=== PATIENT | female | born 1995 | race Two or more races ===

== ENCOUNTER 2019-01-19 16:41 | Emergency (ER) | payer SELFPAY ==
[2019-01-19] MEDS ORDERED: NORMAL SALINE 1000 ML 1,000 ML IV ONE (17:04)
[2019-01-19] MEDS ORDERED: ONDANSETRON HCL INJ/PF 4 MG/2 ML SDV IV ONE (17:04)
--- NOTE | 2019-01-19 17:06 | ER Document Report ---
ED Medical Screen (RME) - General Chief Complaint: Abdominal Pain Stated Complaint: ABDOMINAL PAIN TRAVEL OUTSIDE OF THE [place] IN LAST 30 DAYS: No - HPI Notes: 01/19/19 17:05 Patient is a 23-year-old female G1, P2 approximately 9 weeks who presents complaining of generalized abdominal discomfort with nausea, vomiting, decreased p.o. intake. She has had some back soreness. No vaginal discharge, odor, or bleeding. She has noticed a foul odor with urination to as well. Denies HURT, fever, neck pain, URI, CP, SOB, or rash. I have treated and performed a rapid initial assessment of this patient. A comprehensive ED assessment and evaluation of the patient, analysis of test results and completion of medical decision making process will be conducted by additional ED providers. PHYSICAL EXAMINATION: GENERAL: Well-appearing, well-nourished and in no acute distress. A&Ox4. Answers questions appropriately. LUNGS: Breath sounds clear to auscultation bilaterally and equal. No wheezes rales or rhonchi. HEART: Regular rate and rhythm without murmurs, rubs, gallops. ABDOMEN: Soft, nondistended abdomen. No guarding, no rebound. Normal bowel sounds present. No CVA tenderness bilaterally. + mild generalized tenderness (cannot elicit thorough abd exam w/o bed, however). - Related Data Allergies/Adverse Reactions: No Known Allergies Allergy (Verified 01/19/19 16:44) Physical Exam - Vital signs Vitals: Temp Pulse Resp BP Pulse Ox 98.4 F 106 H 18 104/73 98 01/19/19 16:50 01/19/19 16:50 01/19/19 16:50 01/19/19 16:50 01/19/19 16:50 Course - Vital Signs Vital signs: Temp Pulse Resp BP Pulse Ox 98.4 F 106 H 18 104/73 98 01/19/19 16:50 01/19/19 16:50 01/19/19 16:50 01/19/19 16:50 01/19/19 16:50
[2019-01-19] MEDS ORDERED: ONDANSETRON HCL INJ/PF 4 MG/2 ML SDV ONE (17:29)
[2019-01-19 18:20] LABS: ABSOLUTE BASOPHILS # (AUTO) 0.1 10^3/uL (0.0-0.2); ABSOLUTE EOSINOPHILS # (AUTO) 0.1 10^3/uL (0.0-0.6); ABSOLUTE LYMPHOCYTES (AUTO) 1.6 10^3/uL (0.5-4.7); ABSOLUTE MONOCYTES (AUTO) 0.7 10^3/uL (0.1-1.4); ABSOLUTE NEUT (AUTO) 7.5 10^3/uL (1.7-8.2); BASOPHILS % (AUTO) 0.5 % (0-2); EOSINOPHILS % (AUTO) 0.6 % (0-6); HEMATOCRIT 42.1 % (36.0-47.0); HEMOGLOBIN 13.7 g/dL (12.0-15.5); LYMPHOCYTES % (AUTO) 16.5 % (13-45); MEAN CORPUSCULAR HEMOGLOBIN 27.2 pg (27.0-33.4); MEAN CORPUSCULAR HGB CONC 32.6 g/dL (32.0-36.0); MEAN CORPUSCULAR VOLUME 83 fl (80-97); MONOCYTES % (AUTO) 7.2 % (3-13); PLATELET COUNT 348 10^3/uL (150-450); RED BLOOD COUNT 5.06 10^6/uL (3.72-5.28); RED CELL DISTRIBUTION WIDTH 15.5 % (11.5-14.0); SEGMENTED NEUTROPHILS % (AUTO) 75.2 % (42-78); TOTAL CELLS COUNTED % (AUTO) 100 %; WHITE BLOOD COUNT 9.9 10^3/uL (4.0-10.5)
[2019-01-19 18:39] LABS: ALBUMIN 4.5 g/dL (3.5-5.0); ALKALINE PHOSPHATASE 65 U/L (38-126); ANION GAP 12 (5-19); ASPARTATE AMINO TRANSFERASE 34 U/L (14-36); BILIRUBIN,DIRECT 0.4 mg/dL (0.0-0.4); BILIRUBIN,TOTAL 0.7 mg/dL (0.2-1.3); BLOOD UREA NITROGEN 5 mg/dL (7-20); CALCIUM 9.7 mg/dL (8.4-10.2); CARBON DIOXIDE 24 mmol/L (22-30); CHLORIDE 99 mmol/L (98-107); GLUCOSE 80 mg/dL (75-110); POTASSIUM 4.6 mmol/L (3.6-5.0); TOTAL PROTEIN 7.8 g/dL (6.3-8.2)
--- NOTE | 2019-01-19 18:41 | RADIOLOGY REPORT (SQ) ---
EXAM DESCRIPTION: U/S OB TRANSVAG W/DOPPLER COMPLETED DATE/TIME: 01/19/2019 6:22 pm REASON FOR STUDY: abd pain/ COMPARISON: None. TECHNIQUE: Endovaginal static and realtime grayscale images acquired of the pelvis. Additional selec adrianna spectral and color Doppler images recorded. All images stored on PACs. bHCG: None available CLINICAL DATES: Last menses 11/08/2018, estimated due date 08/15/2019 LIMITATIONS: None. FINDINGS: FETUS: Single Living intrauterine . ULTRASOUND EGA: 10 weeks 0 days ULTRASOUND LUIS: 08/17/2019 EFW: Not applicable less than 20 weeks. CRL: 3.1 cm FHR: 163 beats per minute. SURVEY: Too early to assess AMNIOTIC FLUID: Adequate amount. PLACENTA: Not yet developed due to early gestation. SUBCHORIONIC BLEED: No SIZE OF BLEED: Not applicable. UTERUS: No masses. No anomalies. Uterus is 11 x 8 x 8 cm in size CERVICAL LENGTH: Not well seen RIGHT ADNEXA: Normal ovary with normal vascular flow. Right ovary is 3.5 x 3.3 x 1.9 cm in size. No adnexal free fluid. No adnexal masses. LEFT ADNEXA: Ovary not identified due to poor acoustical window. No adnexal free fluid. No adnexal masses. FREE FLUID: None. OTHER: No other significant finding. IMPRESSION: LIVING INTRAUTERINE . EGA 10 weeks 0 days No free pelvic fluid. Left ovary not visualized. Trimester of : First trimester - 0 to 13 weeks. TECHNICAL DOCUMENTATION: JOB ID: [id number] [employer]- All Rights Reserved Reading location - IP/workstation name: [id number]
--- NOTE | 2019-01-19 19:44 | ER Document Report ---
ED General - General Chief Complaint: Abdominal Pain Stated Complaint: ABDOMINAL PAIN Time Seen by Provider: 01/19/19 18:01 Primary Care Provider: [facility] [Provider Group] - Follow up in 1 week Notes: Patient is a G1 P 0 23-year-old female who presents to the emergency department with a chief complaint of abdominal pain. Patient is primarily Greenlandic- speaking. I offered an instrument assembler, but she refused. Her boyfriend (father of the baby) states that he is fluent in Maori and [place]ic and would like to translate. Her pain started today. Her pain is in her lower abdomen and her back. Has had some associated nausea and vomiting. Her oral intake has been poor since yesterday. Patient admits to having some yellow vaginal discharge. She denies any vaginal bleeding, fever, or dysuria. She has a past medical history of thyroid cancer which was removed 14 years ago, but apparently is still active. She was supposed to have chemotherapy, but found out she was . Her primary care provider is in [place]. TRAVEL OUTSIDE OF THE [place] IN LAST 30 DAYS: No - Related Data Allergies/Adverse Reactions: No Known Allergies Allergy (Verified 01/19/19 16:44) Past Medical History - Social History Smoking Status: Never Smoker Chew tobacco use (# tins/day): No Frequency of alcohol use: None Family History: Reviewed & Not Pertinent Patient has suicidal ideation: No Patient has homicidal ideation: No Renal/ Medical History: Denies: Hx Peritoneal Dialysis Past Surgical History: Reports: Hx Thyroid Surgery - Age of 13 Review of Systems - Review of Systems Notes: REVIEW OF SYSTEMS: CONSTITUTIONAL : Denies recent illness. Denies recent unintentional weight loss. Denies fever, chills, or sweats. EENT: Denies eye, ear, throat, or mouth pain, discharge, or symptoms. Denies nasal or sinus congestion. CARDIOVASCULAR: Denies chest pain. RESPIRATORY: Denies shortness of breath, cough, congestion, difficulty breathing, or wheezing. GASTROINTESTINAL: See HPI GENITOURINARY: Denies difficulty urinating, burning, blood in urine, urgency or frequency. FEMALE GENITOURINARY: See HPI MUSCULOSKELETAL: Denies neck and back pain. Denies joint pain or swelling. SKIN: Denies rash, itchiness, or lesions HEMATOLOGIC : Denies easy bruising or bleeding. LYMPHATIC: Denies swollen, painful, enlarged glands. NEUROLOGICAL: Denies no numbness or tingling denies weakness. Denies headache. Denies altered mental status. Denies alteration in speech. PSYCHIATRIC: Denies stress, anxiety, alteration in sleep patterns, or depression. All other systems reviewed and negative. Physical Exam - Vital signs Vitals: Temp Pulse Resp BP Pulse Ox 98.4 F 106 H 18 104/73 98 01/19/19 16:50 01/19/19 16:50 01/19/19 16:50 01/19/19 16:50 01/19/19 16:50 - Notes Notes: PHYSICAL EXAMINATION: GENERAL: Appears well, healthy, well-nourished, no acute distress. HEAD: Normocephalic, atraumatic. EYES: PERRL, conjunctiva normal, all extraocular movements intact, sclera nonicteric ENT: Moist mucous membranes. NECK: Supple, no noticeable swelling, redness, rash. Normal range of motion. LUNGS: Equal breath sounds bilaterally and clear to auscultation. No wheezes rales or rhonchi. CARDIOVASCULAR: S1-S2, regular rate, regular rhythm. Radial pulses 2+, normal. ABDOMEN: Normoactive bowel sounds. Soft, mildly tender mid lower abdomen, no guarding, no rebound tenderness, and no masses palpated. EXTREMITIES: Normal strength and range of motion, no pitting or edema. No cyanosis. NEUROLOGICAL: Moves all extremities upon command. Strength 5/5 in all extremities. PSYCH: Normal mood, normal affect. SKIN: Warm, dry. No rash, lesions, ulcerations noted. Normal skin turgor. INPUT OUTPUT CLERK: Pale yellow discharge noted; no cervical motion tenderness. Course - Re-evaluation Re-evalutation: 01/19/19 19:50 Transvaginal ultrasound ordered in triage shows that the patient is transvaginal ultrasound ordered in triage shows that the patient has a 10-week living intrauterine . Her hematology is unremarkable. Chemistries are also unremarkable. Her beta hCG is 94,106, consistent with her . Her urinalysis shows that she is mildly dehydrated. After speaking with the patient, a pelvic exam will be done due to the patient having vaginal discharge. 01/19/19 20:05 JESSICA Morillo was at bedside for station supervisor of pelvic exam. The patient's boyfriend was also there for translation. No cervical motion tenderness noted. There is some yellow discharge on physical exam. Awaiting wet mount results. 01/19/19 21:45 Wet mount results show that patient has 3+ epithelial cells and 3+ bacteria. No yeast noted there is also 1+ WBCs. Gonorrhea and Chlamydia are both negative. At this time the patient will be started on transvaginal metronidazole. Discharge instructions were given to the patient via her boyfriend. Patient verbalized understanding of discharge instructions. She will follow-up with [facility]. Patient is unsure as when she will return to [place]. I told her that if she is going to stay in the area, I would follow- up with [facility]. She is in agreement with this plan. Follow-up precautions were given. Verbal discharge instructions were given to the patient. They verbalized understanding. They are stable for discharge. - Vital Signs Vital signs: Temp Pulse Resp BP Pulse Ox 98.2 F 102 H 16 108/59 L 98 01/19/19 22:39 01/19/19 22:39 01/19/19 22:39 01/19/19 22:39 01/19/19 22:39 - Laboratory Result Diagrams: 01/19/19 17:32 01/19/19 17:32 Laboratory results interpreted by me: 01/19/19 01/19/19 01/19/19 17:32 17:32 20:50 RDW 15.5 H Sodium 135.0 L BUN 5 L Creatinine 0.37 L Beta HCG, Quant 81155.00 H Urine Ketones 80 H Urine Nitrite POSITIVE H Urine Urobilinogen 4.0 H Discharge - Discharge Clinical Impression: Bacterial vaginosis Qualifiers: Weeks of gestation: 10 weeks Qualified Code(s): Z3A.10 - 10 weeks gestation of Condition: Stable Disposition: HOME, SELF-CARE Additional Instructions: You were seen today in the emergency department for abdominal cramping during . You have bacterial vaginosis. You are being treated with antibiotics. Take as prescribed. If the results are positive, you will be called. Please follow-up with an [facility]. You are being sent home with nausea medication. You can take this medication tonight (1 tablet every 4-6 hours as needed) until you are able to buy vitamin B6 [id number]. Prescriptions: Metronidazole [Metrogel 0.75% Vaginal Gel] 1 applic VG QHS 5 Days #1 tube Referrals: [facility] [Provider Group] - Follow up in 1 week
[2019-01-19 20:35] LABS: BACTERIA (WET MOUNT) 3+ BACTERIA SEEN; EPITHELIALS (WET MOUNT) 3+ EPITHELIALS SEEN; RBCS (WET MOUNT) NO RBCS SEEN; T.VAGINALIS (WET MOUNT) NO TRICHOMONAS SEEN; WBCS (WET MOUNT) 1+ WBCS SEEN; YEAST (WET MOUNT) NO YEAST SEEN
[2019-01-19] MEDS ORDERED: AZITHROMYCIN 250 MG TABLET PO ONE (20:47)
[2019-01-19] MEDS ORDERED: LIDOCAINE 1% INJ-PF (10 MG/ML) 30 ML SDV INJ ONE (20:47)
[2019-01-19] MEDS ORDERED: METRONIDAZOLE 500 MG TABLET PO ONE (20:47)
[2019-01-19] MEDS ORDERED: CEFTRIAXONE INJ 250 MG VIAL IM ONE (20:47)
[2019-01-19] MEDS ORDERED: AZITHROMYCIN 250 MG TABLET ONE (21:16)
[2019-01-19] MEDS ORDERED: METRONIDAZOLE 500 MG TABLET ONE (21:16)
[2019-01-19] MEDS ORDERED: LIDOCAINE 1% INJ-PF (10 MG/ML) 30 ML SDV ONE (21:17)
[2019-01-19] MEDS ORDERED: CEFTRIAXONE INJ 250 MG VIAL ONE (21:17)
[2019-01-19 22:01] LABS: APPEARANCE,URINE CLEAR; BILIRUBIN,URINE NEGATIVE (NEGATIVE); COLOR,URINE YELLOW; GLUCOSE, URINE NEGATIVE (NEGATIVE); KETONES,URINE 80 mg/dL (NEGATIVE); LEUKOCYTE ESTERASE,URINE NEGATIVE (NEGATIVE); NITRITE,URINE POSITIVE (NEGATIVE); PROTEIN,URINE NEGATIVE (NEGATIVE); URINE SPECIFIC GRAVITY 1.019
[2019-01-19 22:02] LABS: CHLAM PCR NOT DETECTED (NOT DETECT)
[2019-01-19] MEDS ORDERED: ONDANSETRON ODT 4 MG TAB (6 TAB/ER DISP) PO PRN (22:35)
[2019-01-19 22:39] VITALS: BP 108/59
== END 2019-01-19 22:45 | disposition home or self-care (01) ==
LOC: ER 16:41
DX: O23.591 Infection of other part of genital tract in pregnancy, first trimester (principal); B96.89 Other specified bacterial agents as the cause of diseases classified elsewhere; O21.9 Vomiting of pregnancy, unspecified; O26.891 Other specified pregnancy related conditions, first trimester; R10.30 Lower abdominal pain, unspecified; O99.89 Other specified diseases and conditions complicating pregnancy, childbirth and the puerperium; M54.9 Dorsalgia, unspecified; Z3A.10 10 weeks gestation of pregnancy
CPT/HCPCS: 99284; 96361; 96374; 36415; 87210; 84702; 83690; 85025; 80053; 81001; 87491; 87591; 76817; 93976; J2405; J7030

== ENCOUNTER 2019-01-27 17:15 | Emergency (ER) | payer SELFPAY ==
[2019-01-27] MEDS ORDERED: PROMETHAZINE HCL 25 MG TABLET PO ONE (17:56)
[2019-01-27] MEDS ORDERED: NORMAL SALINE 1000 ML 1,000 ML IV ONE ×2 (17:56→20:58)
--- NOTE | 2019-01-27 17:58 | ER Document Report ---
ED Medical Screen (RME) - General Chief Complaint: Abdominal Pain Stated Complaint: STOMACH PAIN Time Seen by Provider: 01/27/19 17:52 Notes: Patient is presently 10 weeks G1, P0. Patient complains of epigastric pain that radiates to left upper quadrant and left lateral side. Patient reports nausea and vomiting. Patient had pain symptoms for some time but they worsened today. Patient was seen here last week for similar complaints. I have greeted and performed a rapid initial assessment of this patient. A comprehensive ED assessment and evaluation of the patient, analysis of test results and completion of the medical decision making process will be conducted by additional ED providers. TRAVEL OUTSIDE OF THE [place] IN LAST 30 DAYS: No - Related Data Allergies/Adverse Reactions: No Known Allergies Allergy (Verified 01/27/19 17:53) Past Medical History - Social History Chew tobacco use (# tins/day): No Frequency of alcohol use: None Drug Abuse: None Renal/ Medical History: Denies: Hx Peritoneal Dialysis Past Surgical History: Reports: Hx Thyroid Surgery - Age of 13 Physical Exam - Vital signs Vitals: Temp Pulse Resp BP Pulse Ox 98.7 F 106 H 18 104/68 97 01/27/19 17:22 01/27/19 17:22 01/27/19 17:22 01/27/19 17:22 01/27/19 17:22 - General Notes: Epigastric, left upper quadrant, left lateral side pain Course - Vital Signs Vital signs: Temp Pulse Resp BP Pulse Ox 98.7 F 106 H 18 104/68 97 01/27/19 17:22 01/27/19 17:22 01/27/19 17:22 01/27/19 17:22 01/27/19 17:22
[2019-01-27 18:37] LABS: ABSOLUTE EOSINOPHILS # (AUTO) 0.1 10^3/uL (0.0-0.6); ABSOLUTE LYMPHOCYTES (AUTO) 1.8 10^3/uL (0.5-4.7); ABSOLUTE MONOCYTES (AUTO) 0.7 10^3/uL (0.1-1.4); ABSOLUTE NEUT (AUTO) 8.1 10^3/uL (1.7-8.2); BASOPHILS % (AUTO) 0.4 % (0-2); EOSINOPHILS % (AUTO) 0.5 % (0-6); HEMATOCRIT 40.8 % (36.0-47.0); HEMOGLOBIN 13.6 g/dL (12.0-15.5); LYMPHOCYTES % (AUTO) 16.4 % (13-45); MEAN CORPUSCULAR HEMOGLOBIN 27.4 pg (27.0-33.4); MEAN CORPUSCULAR HGB CONC 33.2 g/dL (32.0-36.0); MEAN CORPUSCULAR VOLUME 83 fl (80-97); MONOCYTES % (AUTO) 6.6 % (3-13); PLATELET COUNT 321 10^3/uL (150-450); RED BLOOD COUNT 4.95 10^6/uL (3.72-5.28); RED CELL DISTRIBUTION WIDTH 15.7 % (11.5-14.0); SEGMENTED NEUTROPHILS % (AUTO) 76.1 % (42-78); TOTAL CELLS COUNTED % (AUTO) 100 %; WHITE BLOOD COUNT 10.7 10^3/uL (4.0-10.5)
[2019-01-27 18:57] LABS: ALBUMIN 4.2 g/dL (3.5-5.0); ALKALINE PHOSPHATASE 77 U/L (38-126); ANION GAP 13 (5-19); ASPARTATE AMINO TRANSFERASE 23 U/L (14-36); BILIRUBIN,DIRECT 0.3 mg/dL (0.0-0.4); BILIRUBIN,TOTAL 0.5 mg/dL (0.2-1.3); BLOOD UREA NITROGEN 3 mg/dL (7-20); CALCIUM 9.7 mg/dL (8.4-10.2); CARBON DIOXIDE 23 mmol/L (22-30); CHLORIDE 100 mmol/L (98-107); GLUCOSE 92 mg/dL (75-110); POTASSIUM 3.9 mmol/L (3.6-5.0); TOTAL PROTEIN 7.5 g/dL (6.3-8.2)
[2019-01-27 20:21] LABS: APPEARANCE,URINE CLOUDY; BILIRUBIN,URINE NEGATIVE (NEGATIVE); GLUCOSE, URINE NEGATIVE (NEGATIVE); KETONES,URINE 80 mg/dL (NEGATIVE); LEUKOCYTE ESTERASE,URINE MODERATE (NEGATIVE); NITRITE,URINE NEGATIVE (NEGATIVE); PROTEIN,URINE 30 mg/dL (NEGATIVE); URINE SPECIFIC GRAVITY 1.023
--- NOTE | 2019-01-27 20:24 | RADIOLOGY REPORT (SQ) ---
EXAM DESCRIPTION: US LESS THAN 14 WEEKS COMPLETED DATE/TME: 01/27/2019 17:57 CLINICAL HISTORY: 23 years, Female, epig, L lat side pain COMPARISON: None. TECHNIQUE: Axial 2-D grayscale images of the pelvis were performed. Doppler was utilized. LIMITATIONS: None. FINDINGS: Uterus measures 11.9 x 9.3 x 7.6 cm in size. A single intrauterine gestational sac is identified with measurements as follows: Mclean-rump length: 4.63 cm heart rate is 163 bpm Yolk sac was not visualized. Estimated gestational age is 11 weeks and three days for an estimated date of delivery of 08/15/2019 Cervix is closed, measuring 2.8 cm in length. Right ovary measures 3.3 x 2.6 x 2.9 cm in size. It appears normal in echogenicity. The left ovary was not visualized. IMPRESSION: Single viable intrauterine , as above described. No acute findings. Nonvisualization of the left ovary. copyright 2010 [employer]- All Rights Reserved
[2019-01-27] MEDS ORDERED: MAG HYDROX/AL HYDROX/SIMETH SUSP 30 ML UDCUP PO ONE (20:26)
[2019-01-27] MEDS ORDERED: METOCLOPRAMIDE HCL ORAL SOLN 10 MG/10 ML UDCUP PO ONE (20:26)
[2019-01-27] MEDS ORDERED: LIDOCAINE 2% VISCOUS SOLN 20 ML UDCUP PO ONE (20:26)
[2019-01-27 20:30] LABS: COLOR,URINE YELLOW
--- NOTE | 2019-01-27 20:30 | ER Document Report ---
ED GI/ - General Chief Complaint: Abdominal Pain Stated Complaint: STOMACH PAIN Time Seen by Provider: 01/27/19 17:52 Primary Care Provider: [facility] [Provider Group] - Follow up as needed Mode of Arrival: Ambulatory Information source: Patient Notes: 23-year-old female presents to ED for epigastric pain nausea and vomiting since she was 5 weeks she is now 10 weeks . She states she has been having worsening pain in her epigastric area and throat from the throwing up. States she was seen here last week for similar symptoms. She is alert oriented respirations regular and unlabored speaking in full sentences. She does speak S panish and she preferred for her to translate according to the and she states she does understand me but she cannot talk to me. TRAVEL OUTSIDE OF THE [place] IN LAST 30 DAYS: No - HPI Patient complains to provider of: Abdominal pain - Epigastric, , Vomiting Onset: Other - 5 weeks Timing/Duration: Intermittent Quality of pain: Burning Severity at maximum: Severe Severity in ED: Moderate Pain Level: 3 Context: Location: Epigastric Vaginal bleeding (Compared to normal period): None Menstrual period history: : 1 Para: 0 Exacerbated by: Food, Other - vomiting Relieved by: Denies Similar symptoms previously: Yes Recently seen / treated by doctor: Yes - Related Data Allergies/Adverse Reactions: No Known Allergies Allergy (Verified 01/27/19 17:53) Past Medical History - General Information source: Patient, Relative - - Social History Smoking Status: Never Smoker Chew tobacco use (# tins/day): No Frequency of alcohol use: None Drug Abuse: None Lives with: Family Family History: Reviewed & Not Pertinent Patient has suicidal ideation: No Patient has homicidal ideation: No - Past Medical History Cardiac Medical History: Reports: None Pulmonary Medical History: Reports: None EENT Medical History: Reports: None Neurological Medical History: Reports: None Endocrine Medical History: Reports: Other - thyroidectomy Renal/ Medical History: Reports: None Malignancy Medical History: Reports: Other - thyroid GI Medical History: Reports: None Musculoskeletal Medical History: Reports None Skin Medical History: Reports None Psychiatric Medical History: Reports: None Traumatic Medical History: Reports: None Past Surgical History: Reports: Hx Thyroid Surgery - Age of 13 Review of Systems - Review of Systems Constitutional: No symptoms reported EENT: No symptoms reported Cardiovascular: No symptoms reported Respiratory: No symptoms reported Gastrointestinal: Abdominal pain - Epigastric Genitourinary: No symptoms reported Female Genitourinary: Musculoskeletal: No symptoms reported Skin: No symptoms reported Hematologic/Lymphatic: No symptoms reported Neurological/Psychological: No symptoms reported -: Yes All other systems reviewed and negative Physical Exam - Vital signs Vitals: Temp Pulse Resp BP Pulse Ox 98.7 F 106 H 18 104/68 97 01/27/19 17:22 01/27/19 17:22 01/27/19 17:22 01/27/19 17:22 01/27/19 17:22 Interpretation: Normal - General General appearance: Appears well, Alert - HEENT Head: Normocephalic, Atraumatic Eyes: Normal Pupils: PERRL - Respiratory Respiratory status: No respiratory distress Chest status: Nontender Breath sounds: Normal Chest palpation: Normal - Cardiovascular Rhythm: Regular Heart sounds: Normal auscultation Murmur: No - Abdominal Inspection: Normal Distension: No distension Bowel sounds: Normal Tenderness: Tender - Epigastric Organomegaly: No organomegaly - Back Back: Normal, Nontender - Extremities General upper extremity: Normal inspection, Nontender, Normal color, Normal ROM, Normal temperature General lower extremity: Normal inspection, Nontender, Normal color, Normal ROM, Normal temperature, Normal weight bearing. No: Cynthia's sign - Neurological Neuro grossly intact: Yes Cognition: Normal Orientation: AAOx4 Nordman Coma Scale Eye Opening: Spontaneous Nordman Coma Scale Verbal: Oriented Nordman Coma Scale Motor: Obeys Commands Nordman Coma Scale Total: 15 Speech: Normal Motor strength normal: LUE, RUE, LLE, RLE Sensory: Normal - Psychological Associated symptoms: Normal affect, Normal mood - Skin Skin Temperature: Warm Skin Moisture: Dry Skin Color: Normal Course - Re-evaluation Re-evalutation: 01/28/19 02:11 Patient was treated with Phenergan by the provider in triage. Patient states she still would have an pain in her throat and epigastric gas pains. She was then treated with a GI cocktail in the emergency room as well as IV fluids. She states the GI cocktail helped her a lot. When her urine was returned she does have a UTI. Patient was given more fluids due to her dehydration during and a gram of Rocephin in the emergency room. And she was discharged home with a prescription for cefdinir and instructed to follow-up with her primary care and [employer]. Patient was discharged home. Patient was able to understand my instructions but she is not able to speak [place] well enough but her did translate per her request. - Vital Signs Vital signs: Temp Pulse Resp BP Pulse Ox 98.6 F 105 H 18 112/68 98 01/27/19 22:27 01/27/19 22:27 01/27/19 22:27 01/27/19 22:27 01/27/19 22:27 - Laboratory Result Diagrams: 01/27/19 18:18 01/27/19 18:18 Laboratory results interpreted by me: 01/27/19 01/27/19 01/27/19 18:18 18:18 19:56 WBC 10.7 H RDW 15.7 H Sodium 135.9 L BUN 3 L Creatinine 0.34 L Urine Protein 30 H Urine Ketones 80 H Urine Urobilinogen 2.0 H Ur Leukocyte Esterase MODERATE H Urine Ascorbic Acid 40 H - Diagnostic Test Radiology reviewed: Image reviewed, Reports reviewed Discharge - Discharge Clinical Impression: UTI (urinary tract infection) in in first trimester, Nausea and vomiting during , Epigastric abdominal pain during Condition: Stable Disposition: HOME, SELF-CARE Additional Instructions: Hyperemesis Gravidarum Hyperemesis gravidarum is the medical term for severe vomiting during . We don't know exactly why it occurs, but it's a common problem. Dehydration can occur. This reduces blood flow to the placenta, decreasing the baby's nourishment. The baby will also become dehydrated. There can be harmful changes in blood sodium, potassium, or acid balance. Our goal is to correct, and prevent, dehydration. For severe cases, we give IV fluids. Antinausea medication will be prescribed. (Don't be concerned about " defects" -- the risk to you and your baby from the hyperemesis is the biggest problem. The antinausea medication is very safe at this stage of .) Call the doctor if you have vaginal bleeding, abdominal pain, severe li ghtheadedness or weakness, or other alarming symptoms. URINARY TRACT INFECTION: Your evaluation indicates that you have a urinary tract infection. This is due to germs growing in the bladder. This is a common problem. This infection usually responds quickly to antibiotics. Your antibiotic should be taken exactly as prescribed. Drink plenty of fluids -- three to four quarts a day. Occasionally, a bladder anesthetic will be prescribed to help stop the feeling of urgency until the antibiotic has a chance to clear the infection. This may cause your urine to be dark orange. Certain urine infections require a culture. If the doctor obtained a culture, the results will be back in two days. You should call to see if a change in treatment is needed. A repeat urinalysis after you finish treatment is often recommended. The physician will let you know if further testing is required. Call the doctor if you develop fever, chills, flank pain, inability to urinate, or blood in the urine. INTRAVENOUS (I V) FLUIDS: As part of your care today, you received intravenous (IV) fluids. IV fluids are administered to patients who are dehydrated or to those who have certain chemical (electrolyte) abnormalities that need correcting. ANTINAUSEA MEDICATION: You have been given a medication to suppress nausea and vomiting. This type of medication can be given as a shot, pill, or suppository. It will usually last for many hours. Pills and shots usually last six to eight hours. For the typical illness, only one or two doses of the medication may be necessary. Mild lightheadedness may occur. This type of medicine can cause drowsiness. Do not drive or operate dangerous machinery while under its influence. Do not mix with alcohol. See your doctor at once if you have muscle spasms or tightness, or uncontrollable motions (particularly of the neck, mouth, or jaw). Persistent vomiting or severe lightheadedness should also be evaluated by the physician. REGLAN (METOCLOPRAMIDE): Reglan has been prescribed. This medicine affects the stomach and intestines. It can be used to treat nausea and vomiting, to prevent reflux of stomach acid up into the esophagus, or to increase the contractions of the stomach and intestines. It is often prescribed for esophagitis, and for paralysis of the stomach in diabetics. Reglan can cause either mild restlessness or drowsiness. You should contact the doctor at once if you become extremely restless, anxious, or cannot sleep, or if you develop uncontrollable motions of the lips, tongue, or jaw. Do not take alcohol with this medicine. Do not drive or operate machinery until you have been taking this medicine long enough to know how it affects you. Call the doctor if you develop abdominal pains, lightheadedness, black stool, or blood in the stool or vomitus. Cephalosporins An antibiotic of the cephalosporin class has been prescribed. This type of antibiotic covers a wide variety of infections, including those of the skin, lungs, middle ear, and urinary tract. This antibiotic is somewhat similar to the penicillin family. In rare c ases, a person who is allergic to penicillin will also be allergic to this medication. If you have had a severe allergic reaction to penicillin, and have not taken this antibiotic since that time, notify your doctor. Antibiotics which cover many germs ("broad spectrum" antibiotics) are more likely to cause diarrhea or "yeast" infections. Women prone to vaginal yeast problems may suffer an attack after taking this antibiotic. In infants, oral thrush (white spots "stuck" on the cheek) or yeast diaper rash may result. See your doctor if these problems occur. Call the doctor at once if you develop hives, itching, shortness of breath, or lightheadedness. Rocephin You have been given an injection of an antibiotic called Rocephin (ceftriaxone). Sometimes the injection must be combined with antibiotic pills. For some infections, such as an uncomplicated ear infection, Rocephin provides all the antibiotic that's needed. The antibiotic will be in your body for about two days. For serious infections, we usually repeat doses of Rocephin daily. Side effects are very unusual following a shot. Women may develop vaginal yeast infections, and babies can get yeast (thrush) in the mouth following the use of antibiotics. Contact your physician if you have symptoms with this medication. Allergy to this antibiotic can result in hives, wheezing, faintness, or itching. If symptoms of allergy occur, call the doctor at once. FOLLOW-UP CARE: If you have been referred to a physician for follow-up care, call the physicians office for an appointment as you were instructed or within the next two days. If you experience worsening or a significant change in your symptoms, notify the physician immediately or return to the Emergency Department at any time for re-evaluation. Prescriptions: Metoclopramide HCl [Reglan 10 mg Tablet] 10 mg PO Q6HP PRN #30 tablet PRN Reason: For Nausea/Vomiting Cefdinir 300 mg PO BID #14 capsule Referrals: [facility] [Provider Group] - Follow up as needed
[2019-01-27] MEDS ORDERED: CEFTRIAXONE 1 GM/D5W RTU 1 GM/50 ML RTUPB IV ONE (21:03)
[2019-01-27 22:33] VITALS: BP 112/68
== END 2019-01-27 22:33 | disposition home or self-care (01) ==
LOC: ER 17:15
DX: O23.41 Unspecified infection of urinary tract in pregnancy, first trimester (principal); O26.91 Pregnancy related conditions, unspecified, first trimester; R10.13 Epigastric pain; O21.9 Vomiting of pregnancy, unspecified; Z3A.10 10 weeks gestation of pregnancy
CPT/HCPCS: 99284; 96361; 96365; 36415; 87070; 87880; 83690; 85025; 80053; 81001; 76801; J3490; J7030; J0696

== ENCOUNTER → 2019-01-28 | Outpatient (CLI) | payer SELFPAY ==
--- NOTE | 2019-01-28 15:25 | RADIOLOGY REPORT (SQ) ---
EXAM DESCRIPTION: U/S [id number] TRNABD 1GES W/ODOP COMPLETED DATE/TIME: 01/28/2019 3:13 pm REASON FOR STUDY: ENCTR FOR SUPERVISION OF NORMAL FIRST , FIRST TRIMESTER (Z34.01) Z34.01 ENCNTR FOR SUPRVSN OF NORMAL FIRST PREG, FIRST TRIMES COMPARISON: 01/27/2019 TECHNIQUE: Transabdominal static and realtime grayscale images acquired of the pelvis. Additional se lected spectral and color Doppler images recorded. All images stored on PACs. bHCG: Not available. CLINICAL DATES: 11 weeks 3 days LIMITATIONS: None. FINDINGS: FETUS: Single Living intrauterine . ULTRASOUND EGA: 11 weeks 3 days ULTRASOUND LUIS: 08/16/2019 EFW: Not applicable less than 20 weeks. CRL: 4.68 cm. FHR: 158 beats per minute. SURVEY: Too early to assess. AMNIOTIC FLUID: Adequate amount. PLACENTA: Not yet developed due to early gestation. SUBCHORIONIC BLEED: No. SIZE OF BLEED: Not applicable. UTERUS: No masses. No anomalies. CERVICAL LENGTH: Not measured. RIGHT ADNEXA: Normal ovary with normal vascular flow. No adnexal free fluid. No adnexal masses. LEFT ADNEXA: Normal ovary with normal vascular flow. No adnexal free fluid. No adnexal masses. FREE FLUID: None. OTHER: No other significant finding. IMPRESSION: LIVING INTRAUTERINE . EGA 11 WEEKS 3 DAYS. Trimester of : First trimester - 0 to 13 weeks. TECHNICAL DOCUMENTATION: JOB ID: [id number] [employer]- All Rights Reserved Reading location - IP/workstation name: [email or web address]
== END ==
LOC: RAD 14:20 → MERGE 14:30
PROVIDERS: ATTEND Midwife
DX: Z34.01 Encounter for supervision of normal first pregnancy, first trimester (principal)
CPT/HCPCS: 76801

== ENCOUNTER 2019-03-22 17:27 | Emergency (ER) | payer MEDICAID, OTHER ==
--- NOTE | 2019-03-22 17:48 | ER Document Report ---
ED Medical Screen (RME) - General Chief Complaint: Chest Pain Stated Complaint: COUGH/LOWER BACK PAIN/CHEST PAIN Time Seen by Provider: 03/22/19 17:34 Notes: Patient is a 23-year-old female who is 19 weeks who presents the emergency department with a cough. Patient has had her cough for about a month. Denies any fever. She also has some lower back pain. Patient has been on nausea medication. Patient has a history of thyroid cancer, but when she going to undergo chemotherapy, she found out she was . Patient is a high risk and has been seeing [facility]. Patient denies hemoptysis. Exam: Cough noted. Clear breath sounds throughout. I have greeted and performed a rapid initial assessment of this patient. A comprehensive ED assessment and evaluation of the patient, analysis of test results and completion of medical decision making process will be conducted by an additional ED providers. TRAVEL OUTSIDE OF THE [place] IN LAST 30 DAYS: No - Related Data Allergies/Adverse Reactions: No Known Allergies Allergy (Verified 03/22/19 17:32) Past Medical History Renal/ Medical History: Denies: Hx Peritoneal Dialysis Past Surgical History: Reports: Hx Thyroid Surgery - Age of 13 Physical Exam - Vital signs Vitals: Temp Pulse Resp BP Pulse Ox 98.4 F 116 H 20 127/61 H 98 03/22/19 17:31 03/22/19 17:31 03/22/19 17:31 03/22/19 17:31 03/22/19 17:31 Course - Vital Signs Vital signs: Temp Pulse Resp BP Pulse Ox 98.4 F 116 H 20 127/61 H 98 03/22/19 17:31 03/22/19 17:31 03/22/19 17:31 03/22/19 17:31 03/22/19 17:31
--- NOTE | 2019-03-22 18:17 | RADIOLOGY REPORT (SQ) ---
EXAM DESCRIPTION: CHEST 2 VIEWS COMPLETED DATE/TIME: 03/22/2019 5:55 pm REASON FOR STUDY: cough COMPARISON: None. EXAM PARAMETERS: NUMBER OF VIEWS: two views TECHNIQUE: Digital Frontal and Lateral radiographic views of the chest acquired. RADIATION DOSE: NA LIMITATIONS: none FINDINGS: LUNGS AND PLEURA: No opacities, masses or pneumothorax. No pleural effusion. MEDIASTINUM AND HILAR STRUCTURES: No masses or contour abnormalities. HEART AND VASCULAR STRUCTURES: Heart normal size. No evidence for failure. BONES: No acute findings. HARDWARE: None in the chest. OTHER: No other significant finding. IMPRESSION: NO ACUTE RADIOGRAPHIC FINDING IN THE CHEST. TECHNICAL DOCUMENTATION: JOB ID: [id number] [employer]- All Rights Reserved Reading location - IP/workstation name: [email or web address]
[2019-03-22 18:51] LABS: ABSOLUTE BASOPHILS # (AUTO) 0.1 10^3/uL (0.0-0.2); ABSOLUTE EOSINOPHILS # (AUTO) 0.2 10^3/uL (0.0-0.6); ABSOLUTE LYMPHOCYTES (AUTO) 1.8 10^3/uL (0.5-4.7); ABSOLUTE MONOCYTES (AUTO) 0.8 10^3/uL (0.1-1.4); ABSOLUTE NEUT (AUTO) 6.7 10^3/uL (1.7-8.2); BASOPHILS % (AUTO) 0.6 % (0-2); EOSINOPHILS % (AUTO) 1.9 % (0-6); HEMATOCRIT 34.2 % (36.0-47.0); HEMOGLOBIN 11.2 g/dL (12.0-15.5); LYMPHOCYTES % (AUTO) 18.9 % (13-45); MEAN CORPUSCULAR HEMOGLOBIN 27.2 pg (27.0-33.4); MEAN CORPUSCULAR HGB CONC 32.8 g/dL (32.0-36.0); MEAN CORPUSCULAR VOLUME 83 fl (80-97); MONOCYTES % (AUTO) 8.1 % (3-13); PLATELET COUNT 328 10^3/uL (150-450); RED BLOOD COUNT 4.11 10^6/uL (3.72-5.28); RED CELL DISTRIBUTION WIDTH 14.9 % (11.5-14.0); SEGMENTED NEUTROPHILS % (AUTO) 70.5 % (42-78); TOTAL CELLS COUNTED % (AUTO) 100 %; WHITE BLOOD COUNT 9.5 10^3/uL (4.0-10.5)
[2019-03-22] MEDS ORDERED: HYDROCODONE/ACETAMINOPHEN 5-325 MG TABLET PO ONE (19:02)
[2019-03-22] MEDS ORDERED: BENZONATATE 100 MG CAPSULE PO ONE (19:02)
[2019-03-22 19:05] LABS: ALBUMIN 3.7 g/dL (3.5-5.0); ALKALINE PHOSPHATASE 52 U/L (38-126); ANION GAP 10 (5-19); ASPARTATE AMINO TRANSFERASE 20 U/L (14-36); BILIRUBIN,DIRECT 0.1 mg/dL (0.0-0.4); BILIRUBIN,TOTAL 0.3 mg/dL (0.2-1.3); BLOOD UREA NITROGEN 3 mg/dL (7-20); CARBON DIOXIDE 22 mmol/L (22-30); CHLORIDE 104 mmol/L (98-107); GLUCOSE 95 mg/dL (75-110); TOTAL PROTEIN 6.9 g/dL (6.3-8.2)
--- NOTE | 2019-03-22 19:06 | ER Document Report ---
ED General - General Chief Complaint: Cough Stated Complaint: COUGH/LOWER BACK PAIN/CHEST PAIN Time Seen by Provider: 03/22/19 17:34 TRAVEL OUTSIDE OF THE [place] IN LAST 30 DAYS: No - HPI Notes: Patient is a G1, P0 female at approximately 19 weeks gestation who presents emergency department for evaluation of cough. She states she is been coughing for about a month. It is primary merrily nonproductive. She denies any fevers or chills. She has had some intermittent post tussive emesis. She had a thy roidectomy secondary to thyroid cancer, chemotherapy is being withheld secondary to her . She follows closely at [facility] in regards to this. She has been trying [id number] medications, including Robitussin, without any significant relief. She describes a soreness in her chest and her back, made worsened by coughing, occasionally by deep breaths. She states now she also has some lower back pain. She is still feeling the baby move. She denies any urinary symptoms. She denies any vaginal bleeding. - Related Data Allergies/Adverse Reactions: No Known Allergies Allergy (Verified 03/22/19 17:32) Past Medical History - General Information source: Patient, Relative - Social History Smoking Status: Never Smoker Family History: Reviewed & Not Pertinent Patient has suicidal ideation: No Patient has homicidal ideation: No Renal/ Medical History: Denies: Hx Peritoneal Dialysis Malignancy Medical History: Reports: Other - Thyroid cancer Past Surgical History: Reports: Hx Thyroid Surgery - Age of 13 Review of Systems - Review of Systems Constitutional: No symptoms reported EENT: No symptoms reported Cardiovascular: No symptoms reported Respiratory: See HPI Gastrointestinal: No symptoms reported Genitourinary: No symptoms reported Female Genitourinary: See HPI Musculoskeletal: No symptoms reported Skin: No symptoms reported Neurological/Psychological: No symptoms reported Physical Exam - Vital signs Vitals: Temp Pulse Resp BP Pulse Ox 98.4 F 116 H 20 127/61 H 98 03/22/19 17:31 03/22/19 17:31 03/22/19 17:31 03/22/19 17:31 03/22/19 17:31 - Notes Notes: Is a very pleasant 23-year-old female. She has an intermittent dry and hacking sounding cough. No respiratory distress. Vital signs reviewed, please refer to chart. Head is normocephalic, atraumatic. Pupils equal round, reactive to light. Neck is supple without meningismus. Heart is regular rate and rhythm. Lungs are clear to auscultation bilaterally. S wall is tender to palpation, particularly over the pectoralis muscles bilaterally. Abdomen is gravid, nontender, normoactive bowel sounds throughout. Extremities without cyanosis, clubbing. Posterior calves are nontender. Peripheral pulses are equal. Skin is warm and dry. Patient is awake, alert, neurological exam is nonfocal. Course - Re-evaluation Re-evalutation: 03/22/19 20:12 Patient presents emergency department for evaluation. She is 19 weeks with cough, also with low back pain. Urinalysis revealed bacteriuria and leukocyte esterase. She is treated for UTI with Keflex. I will send her home with a prescription for same. Her cough is improved after Vicodin and Tessalon Perles. Her chest x-ray is unremarkable. I will send her home with a prescription for Tessalon Perles. She is to follow-up closely with OB, have her urine rechecked next week. She is to return to the ED with worsening or new concerning symptoms of any sort. - Vital Signs Vital signs: Temp Pulse Resp BP Pulse Ox 98.4 F 111 H 18 127/61 H 97 03/22/19 17:31 03/22/19 19:30 03/22/19 19:30 03/22/19 17:31 03/22/19 19:30 - Laboratory Result Diagrams: 03/22/19 18:31 03/22/19 18:06 Laboratory results interpreted by me: 03/22/19 03/22/19 03/22/19 18:06 18:31 19:12 Hgb 11.2 L Hct 34.2 L RDW 14.9 H Sodium 136.2 L BUN 3 L Creatinine 0.33 L Urine Urobilinogen 2.0 H Ur Leukocyte Esterase TRACE H - Diagnostic Test Radiology reviewed: Image reviewed, Reports reviewed Radiology results interpreted by me: 03/22/19 19:06 Chest X-Ray 03/22/19 17:44 IMPRESSION: NO ACUTE RADIOGRAPHIC FINDING IN THE CHEST. Discharge - Discharge Clinical Impression: Cough, Urinary tract infection affecting care of mother in second trimester, antepartum Condition: Stable Disposition: HOME, SELF-CARE Instructions: Urinary Tract Infection ([facility]) Additional Instructions: No clear cause was found for your cough today. Please take your antibiotic as directed, starting tomorrow, until gone. Follow up in [place] as scheduled. Return to the ER with worsening or new concerning symptoms. Prescriptions: Cephalexin Monohydrate [Keflex 500 mg Capsule] 500 mg PO QID #20 capsule Benzonatate [Tessalon Perles 100 mg Capsule] 100 mg PO ASDIR PRN #40 capsule PRN Reason:
[2019-03-22] MEDS ORDERED: NORMAL SALINE 1000 ML 1,000 ML IV ONE (19:22)
[2019-03-22 19:54] LABS: AMORPHOUS SEDIMENT,URINE TRACE /HPF; APPEARANCE,URINE CLOUDY; BILIRUBIN,URINE NEGATIVE (NEGATIVE); COLOR,URINE YELLOW; GLUCOSE, URINE NEGATIVE (NEGATIVE); KETONES,URINE NEGATIVE (NEGATIVE); LEUKOCYTE ESTERASE,URINE TRACE (NEGATIVE); NITRITE,URINE NEGATIVE (NEGATIVE); PROTEIN,URINE NEGATIVE (NEGATIVE); URINE SPECIFIC GRAVITY 1.014
[2019-03-22] MEDS ORDERED: CEPHALEXIN 500 MG CAPSULE PO ONE (20:07)
[2019-03-22 20:44] VITALS: BP 112/67
== END 2019-03-22 20:45 | disposition home or self-care (01) ==
LOC: ER 17:27
DX: O23.42 Unspecified infection of urinary tract in pregnancy, second trimester (principal); O26.892 Other specified pregnancy related conditions, second trimester; R05 Cough; M54.5 Low back pain; R07.9 Chest pain, unspecified; Z3A.19 19 weeks gestation of pregnancy; Z98.890 Other specified postprocedural states
CPT/HCPCS: 36415; 85025; 80053; 81001; 71046; J3490; J7030; 87086; 87088; 96360; 99283